=== PATIENT | male | born 1980 | race African-American/Black ===

== ENCOUNTER 2016-07-29 20:55 | Emergency (ER) | payer SELFPAY ==
[~2016-07-29] VITALS: Ht 165.1 cm; Wt 100.0 kg
[~2016-07-29 20:55] MED LIST: BACT PO; LORTA5 PO
[2016-07-29 20:58] VITALS: BP 128/68; PULSE 100; RESP 16; TEMP 98.9; O2SAT 97
[2016-07-29] MEDS ORDERED: SODIUM CHLOR 0.9% 1000 ML INJ 1,000 ML IV SCH (21:40)
[2016-07-29] MEDS ORDERED: KETOROLAC TROMETHAMINE 30 MG/ML (IVP) VIAL IVP ONE (21:45)
[2016-07-29 22:03] VITALS: BP 130/79; PULSE 95; RESP 30; O2SAT 98
--- NOTE | 2016-07-29 22:07 | RADRPT ---
EXAM DATE/TIME: 07/29/2016 21:58 [facility] COMPARISON: No previous studies available for comparison. INDICATIONS : Fever. MEDICAL HISTORY : Asthma. HIV. SURGICAL HISTORY : None. ENCOUNTER: Initial ACUITY: 1 day PAIN SCORE: 0/10 LOCATION: Bilateral chest FINDINGS: Portable AP view of the chest demonstrates a normal-sized cardiac silhouette. No effusion, consolidat ion, or pneumothorax is visualized. The bones and soft tissues demonstrate no acute abnormality. Mult iple EKG lines overlie the patient. CONCLUSION: No acute cardiopulmonary abnormality is identified. Raman Schmidt MD on July 29, 2016 at 22:04 Board Certified Radiologist. This report was verified electronically.
[2016-07-29 22:19] LABS: AUTOMATED NEUTROPHIL # 4.4 TH/MM3 (1.8-7.7); BASOPHIL % 0.3 % (0.0-2.0); EOSINOPHIL # 0.1 TH/MM3 (0-0.4); EOSINOPHIL % 1.4 % (0.0-4.0); HEMATOCRIT 36.9 % (39.0-51.0); HEMO FLAGS DIFF FINAL; LYMPH % 10.7 % (9.0-44.0); LYMPHOCYTE # 0.6 TH/MM3 (1.0-4.8); MEAN CORPUSCULAR HEMOGLOBIN 27.2 PG (27.0-34.0); MEAN CORPUSCULAR HGB CONC 33.2 % (32.0-36.0); MONO % 6.6 % (0.0-8.0); PLATELET COUNT 357 TH/MM3 (150-450); RED CELL DISTRIBUTION WIDTH 16.2 % (11.6-17.2); WHITE BLOOD COUNT 5.4 TH/MM3 (4.0-11.0)
--- NOTE | 2016-07-29 22:35 | PD ---
HPI Chief Complaint: Chest Pain Time Seen by Provider: 22:30 Travel History International Travel<30 days: No Contact w/Intl Traveler<30days: No Traveled to known affect area: No History of Present Illness HPI 36-year-old male with a history of HIV to presents to the ED for evaluation of weakness, cough and congestion as well as generalized pain for the past 2 weeks. Per patient history of developing left-sided chest pain today which made him concerned and is what he seek treatment today. Per patient his been noncompliant for about 6 months and he has not taken any of his HIV medications. Unclear as to why. Patient states that he feels like he has fevers and sweats. He has a history of MRSA in the past. Per patient he has not seen his doctor in an unknown amount of time. He does not know his CD4 count. He takes no medications. He denies any IV drugs. He states that most of his pain is on the left chest. He denies any abdominal pain but states that his bowel movements have been greenish. She denies any blood. States that he has a cough and congestion as well as sores in his mouth. He also states that he has pain in his wrist secondary to her recent fall. Pain per patient is 6 out of 10. Most of it throughout as body aches. PFSH Past Medical History Asthma: Yes Autoimmune Disease: Yes (HIV) Diminished Hearing: No Immune Disorder: Yes (HIV) Respiratory: Yes (BRONCHITIS) Immunizations Current: Yes Tetanus Vaccination: Unknown Influenza Vaccination: Yes Past Surgical History Surgical History: No Previous Surgery Social History Alcohol Use: No Tobacco Use: Yes Substance Use: No Allergies-Medications (Allergen,Severity, Reaction): Coded Allergies: *MDRO Multi-Drug Resistant Organism (Unverified Adverse Reaction, Unknown , 07/29/16) MRSA abscess buttocks 05/02/14. Reported Meds & Prescriptions Reported Meds & Active Scripts Active No Active Prescriptions or Reported Medications Review of Systems Except as stated in HPI: all other systems reviewed are Neg Physical Exam Narrative GENERAL: SKIN: Warm and dry. HEAD: Atraumatic. Normocephalic. EYES: Pupils equal and round. No scleral icterus. No injection or drainage. ENT: No nasal bleeding or discharge. Mucous membranes pink and moist. Tongue is midline. No uvula deviation. Patient does have what appears to be white patches on them out more noted on the throat and the tongue that are removable. NECK: Trachea midline. No JVD. CARDIOVASCULAR: Regular rate and rhythm. No murmurs, S3, S4. RESPIRATORY: No accessory muscle use. Clear to auscultation. Breath sounds equal bilaterally. GASTROINTESTINAL: Abdomen soft, non-tender, nondistended. Hepatic and splenic margins not palpable. MUSCULOSKELETAL: Extremities without clubbing, cyanosis, or edema. No obvious deformities. Full range of motion of the upper and lower extremities bilaterally. Patient does have some swelling on the wrist bilaterally. No obvious deformity noted however. Pupils pulses bilaterally. Full range of motion of all fingers as well as the hands. No lumbar, thoracic, cervical spine tenderness to palpation. NEUROLOGICAL: Awake and alert. No obvious cranial nerve deficits. Motor grossly within normal limits. Five out of 5 muscle strength in the arms and legs. Normal speech. PSYCHIATRIC: Appropriate mood and affect; insight and judgment normal. Data Data Last Documented VS Vital Signs Date Time Temp Pulse Resp B/P Pulse Ox O2 Delivery O2 Flow Rate FiO2 07/29/16 22:03 95 30 130/79 98 Room Air 07/29/16 20:58 98.9 Orders Electrocardiogram (07/29/16 ) Electrocardiogram (07/29/16 21:40) Complete Blood Count With Diff (07/29/16 21:40) Comprehensive Metabolic Panel (07/29/16 21:40) Creatine Kinase (Cpk) (07/29/16 21:40) Blood Culture (07/29/16 21:40) Lipase (07/29/16 21:40) Urinalysis - C+S If Indicated (07/29/16 21:40) Magnesium (Mg) (07/29/16 21:40) Thyroid Stimulating Hormone (07/29/16 21:40) Chest, Single Ap (07/29/16 21:40) Iv Access Insert/Monitor (07/29/16 21:40) Ecg Monitoring (07/29/16 21:40) Oximetry (07/29/16 21:40) Sodium Chlor 0.9% 1000 Ml Inj (Ns 1000 M (07/29/16 21:40) Ketorolac Inj (Toradol Inj) (07/29/16 21:45) Troponin I (07/29/16 21:41) Influenzae A/B Antigen (07/29/16 21:42) Wrist, Limited (Ap&Lat) (07/29/16 ) Wrist, Limited (Ap&Lat) (07/29/16 ) Labs Laboratory Tests Test 07/29/16 21:50 White Blood Count 5.4 TH/MM3 Red Blood Count 4.50 MIL/MM3 Hemoglobin 12.2 GM/DL Hematocrit 36.9 % Mean Corpuscular Volume 82.0 FL Mean Corpuscular Hemoglobin 27.2 PG Mean Corpuscular Hemoglobin 33.2 % Concent Red Cell Distribution Width 16.2 % Platelet Count 357 TH/MM3 Mean Platelet Volume 7.4 FL Neutrophils (%) (Auto) 81.0 % Lymphocytes (%) (Auto) 10.7 % Monocytes (%) (Auto) 6.6 % Eosinophils (%) (Auto) 1.4 % Basophils (%) (Auto) 0.3 % Neutrophils # (Auto) 4.4 TH/MM3 Lymphocytes # (Auto) 0.6 TH/MM3 Monocytes # (Auto) 0.4 TH/MM3 Eosinophils # (Auto) 0.1 TH/MM3 Basophils # (Auto) 0.0 TH/MM3 CBC Comment DIFF FINAL Differential Comment Sodium Level 142 MEQ/L Potassium Level 3.1 MEQ/L Chloride Level 102 MEQ/L Carbon Dioxide Level 30.7 MEQ/L Anion Gap 9 MEQ/L Blood Urea Nitrogen 9 MG/DL Creatinine 0.95 MG/DL Estimat Glomerular Filtration 108 ML/MIN Rate Random Glucose 76 MG/DL Calcium Level 9.0 MG/DL Magnesium Level 2.1 MG/DL Aspartate Amino Transf 23 U/L (AST/SGOT) Alanine Aminotransferase 22 U/L (ALT/SGPT) Albumin 3.3 GM/DL Lipase 170 U/L [facility] Medical Decision Making Medical Screen Exam Complete: Yes Emergency Medical Condition: Yes Medical Record Reviewed: Yes Interpretation(s) CBC Diagram 07/29/16 21:50 Differential Diagnosis Chest pain versus ACS versus a typical chest pain versus pneumonia versus bronchitis versus viral illness versus Trausch versus candidiasis Narrative Course 36-year-old male that presents to the ED for evaluation of different complaints. Patient was properly examined and was found to have signs and symptoms which appear to be consistent with likely infection. Patient is an HIV patient in noncompliance. Concern for bacterial infection as well as viral infection present. Patient does appear to have oral candidiasis. Labs and imaging ordered. Case signed out to my attending pending results and dispo. Scripts No Active Prescriptions or Reported Meds Robb Echeverria Jul 29, 2016 22:35
[2016-07-29 22:45] VITALS: RESP 16
[2016-07-29 22:45] LABS: ALT (GPT) 22 U/L (12-78); ANION GAP 9 MEQ/L (5-15); AST (GOT) 23 U/L (15-37); BICARBONATE 30.7 MEQ/L (21.0-32.0); BLOOD UREA NITROGEN 9 MG/DL (7-18); CHLORIDE 102 MEQ/L (98-107); GLOMERULAR FILTRATION RATE 108 ML/MIN (>89); MAGNESIUM 2.1 MG/DL (1.5-2.5); POTASSIUM 3.1 MEQ/L (3.5-5.1); SODIUM (NA) 142 MEQ/L (136-145)
--- NOTE | 2016-07-29 22:52 | RADRPT ---
EXAM DATE/TIME: 07/29/2016 22:39 [facility] COMPARISON: No previous studies available for comparison. INDICATIONS : Fall. Wrist pain. MEDICAL HISTORY : Asthma. HIV. SURGICAL HISTORY : None. ENCOUNTER: Initial ACUITY: 2 days PAIN SCORE: 5/10 LOCATION: Bilateral wrists FINDINGS: Two view examination of the right wrist demonstrates no soft tissue swelling, dislocation, or fractur e. The joint spaces are maintained. Bony mineralization is normal. CONCLUSION: Intact right wrist. Raman Bermudez MD on July 29, 2016 at 22:50 Board Certified Radiologist. This report was verified electronically.
--- NOTE | 2016-07-29 22:53 | RADRPT ---
EXAM DATE/TIME: 07/29/2016 22:39 [facility] COMPARISON: No previous studies available for comparison. INDICATIONS : Fall. Wrist pain. MEDICAL HISTORY : Asthma. HIV. SURGICAL HISTORY : None. ENCOUNTER: Initial ACUITY: 2 days PAIN SCORE: 5/10 LOCATION: Bilateral wrists FINDINGS: Two view examination of the left wrist demonstrates no soft tissue swelling, dislocation, or fracture . The joint spaces are maintained. Bony mineralization is normal. CONCLUSION: Intact left wrist. Raman Bermudez MD on July 29, 2016 at 22:51 Board Certified Radiologist. This report was verified electronically.
--- NOTE | 2016-07-29 22:53 | PD ---
Data Data Last Documented VS Vital Signs Date Time Temp Pulse Resp B/P Pulse Ox O2 Delivery O2 Flow Rate FiO2 07/29/16 22:45 16 07/29/16 22:03 95 130/79 98 Room Air 07/29/16 20:58 98.9 Orders Electrocardiogram (07/29/16 ) Electrocardiogram (07/29/16 21:40) Complete Blood Count With Diff (07/29/16 21:40) Comprehensive Metabolic Panel (07/29/16 21:40) Creatine Kinase (Cpk) (07/29/16 21:40) Blood Culture (07/29/16 21:40) Lipase (07/29/16 21:40) Urinalysis - C+S If Indicated (07/29/16 21:40) Magnesium (Mg) (07/29/16 21:40) Thyroid Stimulating Hormone (07/29/16 21:40) Chest, Single Ap (07/29/16 21:40) Iv Access Insert/Monitor (07/29/16 21:40) Ecg Monitoring (07/29/16 21:40) Oximetry (07/29/16 21:40) Sodium Chlor 0.9% 1000 Ml Inj (Ns 1000 M (07/29/16 21:40) Ketorolac Inj (Toradol Inj) (07/29/16 21:45) Troponin I (07/29/16 21:41) Influenzae A/B Antigen (07/29/16 21:42) Wrist, Limited (Ap&Lat) (07/29/16 ) Wrist, Limited (Ap&Lat) (07/29/16 ) Potassium Chloride (Kcl) (07/29/16 23:00) Ceftriaxone Inj (Rocephin Inj) (07/30/16 00:00) Azithromycin Inj (Zithromax Inj) (07/30/16 00:00) Sodium Chlorid 0.9% 500 Ml Inj (Ns 500 M (07/30/16 00:00) Sodium Chloride 0.9% Flush (Ns Flush) (07/30/16 00:45) Methylprednisolone So Succ Inj (Solumedr (07/30/16 00:45) Albuterol-Ipratropium Neb (Duoneb Neb) (07/30/16 00:45) Albuterol Hfa Inh (Proair Hfa Inh) (07/30/16 00:45) Labs Laboratory Tests Test 07/29/16 07/30/16 21:50 00:15 White Blood Count 5.4 TH/MM3 Red Blood Count 4.50 MIL/MM3 Hemoglobin 12.2 GM/DL Hematocrit 36.9 % Mean Corpuscular Volume 82.0 FL Mean Corpuscular Hemoglobin 27.2 PG Mean Corpuscular Hemoglobin 33.2 % Concent Red Cell Distribution Width 16.2 % Platelet Count 357 TH/MM3 Mean Platelet Volume 7.4 FL Neutrophils (%) (Auto) 81.0 % Lymphocytes (%) (Auto) 10.7 % Monocytes (%) (Auto) 6.6 % Eosinophils (%) (Auto) 1.4 % Basophils (%) (Auto) 0.3 % Neutrophils # (Auto) 4.4 TH/MM3 Lymphocytes # (Auto) 0.6 TH/MM3 Monocytes # (Auto) 0.4 TH/MM3 Eosinophils # (Auto) 0.1 TH/MM3 Basophils # (Auto) 0.0 TH/MM3 CBC Comment DIFF FINAL Differential Comment Sodium Level 142 MEQ/L Potassium Level 3.1 MEQ/L Chloride Level 102 MEQ/L Carbon Dioxide Level 30.7 MEQ/L Anion Gap 9 MEQ/L Blood Urea Nitrogen 9 MG/DL Creatinine 0.95 MG/DL Estimat Glomerular Filtration 108 ML/MIN Rate Random Glucose 76 MG/DL Calcium Level 9.0 MG/DL Magnesium Level 2.1 MG/DL Total Bilirubin 0.4 MG/DL Aspartate Amino Transf 23 U/L (AST/SGOT) Alanine Aminotransferase 22 U/L (ALT/SGPT) Alkaline Phosphatase 49 U/L Total Creatine Kinase 161 U/L Total Protein 7.8 GM/DL Albumin 3.3 GM/DL Lipase 170 U/L Thyroid Stimulating Hormone 1.130 uIU/ML 3rd Gen Troponin I LESS THAN 0.02 NG/ML Urine Color DARK-YELLOW Urine Turbidity CLEAR Urine pH 6.5 Urine Specific [place] 1.034 Urine Protein 100 mg/dL Urine Glucose (UA) NEG mg/dL Urine Ketones TRACE mg/dL Urine Occult Blood NEG Urine Nitrite NEG Urine Bilirubin NEG Urine Urobilinogen 4.0 MG/DL Urine Leukocyte Esterase NEG Urine RBC 1 /hpf Urine WBC 3 /hpf Urine Squamous Epithelial 3 /hpf Cells Urine Mucus MANY /lpf Microscopic Urinalysis Comment CULT NOT INDICATED [facility] Medical Record Reviewed: Yes Supervised Visit with NICA: No Interpretation(s) Last Impressions Chest X-Ray 07/29/160 Signed Impressions: Service Date/Time: Friday, July 29, 2016 21:58 - CONCLUSION: No acute cardiopulmonary abnormality is identified. Raman Schmidt MD Wrist X-Ray 07/29/16 0000 Signed Impressions: Service Date/Time: Friday, July 29, 2016 22:39 - CONCLUSION: Intact left wrist. Raman Bermudez MD Wrist X-Ray 07/29/16 0000 Signed Impressions: Service Date/Time: Friday, July 29, 2016 22:39 - CONCLUSION: Intact right wrist. Raman Bermudez MD Narrative Course During the course of the patients emergency department visit, the patients history, examination, and differential diagnosis were reviewed with the patient. The patient had IV access obtained and blood work sent for analysis. The patient was placed on a sales agent food vending service with oximetry and blood pressure monitoring. The patient was initially evaluated by Francesco. Please see his complete history and physical. The patient's case was checked out to me at the conclusion of his shift. The patient is a 36-year-old male who presents to [facility] emergency Department with a history of chills, generalized weakness, cough and a history of HIV off of bridge or viral medications. The patient was initially provided normal saline 1 L IV fluid bolus, Toradol for pain. The patients laboratory studies were reviewed and remarkable for a CMP that is remarkable for a potassium of 3.1 which was supplemented orally with potassium chloride 40 mEq by mouth 1. Urinalysis is unremarkable. Radiology studies were reviewed and remarkable for a chest x-ray that shows no acute abnormality. The patient was reexamined. The patient reports having a rescue inhaler that he uses at home. The patient reports that he has not used this recently. The patient reports feeling tight. The patient was given duo nebs 2, Solu-Medrol 125 mg IV. The patient will be discharged home with a Medrol Dosepak taper, Ceftin, Zithromax. The patient reports that he was previously followed by the [facility] Department through which he was receiving his retroviral medications. He is encouraged to follow up to get started back on his HIV medications. The patient is encouraged to follow up in the next 2 days for reexamination. The patient is resting comfortably and feels better, is alert and in no distress. The patients results and examination findings were discussed with the patient. The repeat examination is unremarkable and benign. The history, exam, diagnostic testing, and current condition do not suggest any significant pathology to warrant further testing, continued ED treatment, admission, or surgical evaluation at this point. The vital signs have been stable. The patient does not have uncontrollable pain, intractable vomiting, or other significant symptoms. The patient's condition is stable and appropriate for discharge. The patient will pursue further outpatient evaluation with a primary care physician or other designated or consulting physician as indicated in the discharge instructions. The patient expressed understanding and was agreeable with this plan. Diagnosis Primary Impression: Bronchitis Additional Impression: Asthma Qualified Code: J45.901 - Asthma with acute exacerbation, unspecified asthma severity [facility]: [facility] Patient Instructions: Acute Bronchitis (ED), Asthma (ED), General Instructions Med/Other Pt SpecificInfo: Prescription(s) given Scripts Methylprednisolone Dosepak (Medrol Dosepak)4 Mg Dspk4 Mg PO DIRECTED #1 DSPK Ref 0 Per Pharmacist direction Prov:Yas Granados MD 07/30/16 Azithromycin (Zithromax)250 Mg [id number] Mg PO DAILY #4 TAB Ref 0 Prov:Yas Granados MD 07/30/16 Cefuroxime 500 Mg [id number] Mg PO BID 14 Days Ref 0 Prov:Yas Granados MD 07/30/16 Disposition: 01 DISCHARGE HOME Condition: Stable Yas Granados MD Jul 29, 2016 22:53
[2016-07-29] MEDS ORDERED: POTASSIUM CHLORIDE 20 MEQ CONTROLLED RELEASE TAB PO ONE (23:00)
[2016-07-29 23:12] LABS: ALKALINE PHOSPHATASE 49 U/L (45-117); CREATINE KINASE 161 U/L (39-308); TOTAL BILIRUBIN ADULT 0.4 MG/DL (0.2-1.0)
[2016-07-30] MEDS ORDERED: ZITH250T PO
[2016-07-30] MEDS ORDERED: SODIUM CHLORID 0.9% 500 ML INJ 500 ML IV ONE
[2016-07-30] MEDS ORDERED: CEFU1TAB20 PO
[2016-07-30] MEDS ORDERED: cefTRIAXone INJ 1,000 MG in SODIUM CHLORIDE 0.9% INJ 100 ML IV ONE ×2
[2016-07-30] MEDS ORDERED: AZITHROMYCIN INJ 500 MG in SODIUM CHLOR 0.9% 250 ML INJ 250 ML IV ONE ×2
[2016-07-30] MEDS ORDERED: MEDR4PAK PO (00:37)
[2016-07-30] MEDS ORDERED: SODIUM CHLORIDE 0.9% FLUSH 10 ML FLUSH IVF PRN (00:45)
[2016-07-30] MEDS ORDERED: ALBUTEROL SULFATE 90 MCG/ACT HFA 8 GM INHALER INH ONE (00:45)
[2016-07-30] MEDS ORDERED: methylPREDNISolone SOD SUCC 125 MG/2 ML VIAL IVP ONE (00:45)
[2016-07-30 00:51] LABS: BLOOD, URINE NEG (NEG); COMMENT (UR) CULT NOT INDICATED; CULTURE IF INDICATED CULT NOT INDICATED; GLUCOSE,URINE NEG (NEG); KETONE, URINE TRACE mg/dL (NEG); MUCUS URINE MANY /lpf (OCC); NITRITE,URINE NEG (NEG); PH, URINE 6.5 (5.0-8.5); SQUAMOUS EPITHELIAL CELL URINE 3 /hpf (0-5); URINE COLOR DARK-YELLOW (YELLW/STRAW)
[2016-07-30] MEDS: RESP: ALBUTEROL 2.5 MG/IPRATROPIUM 0.5 MG NEB (SCH) INH (00:55)
--- NOTE | 2016-07-30 17:09 | EKG ---
Date Performed: 07/29/2016 Time Performed: 21:11:34 PTAGE: 36 years EKG: Sinus rhythm NONSPECIFIC T-WAVE ABNORMALITY BORDERLINE ECG NO PREVIOUS TRACING DOCTOR: Shahida Andrews Interpretating Date/Time 07/30/2016 17:06:35
== END 2016-07-30 01:55 | disposition home or self-care (01) ==
LOC: NEPC 20:55
DX: J40 Bronchitis, not specified as acute or chronic (principal); J45.909 Unspecified asthma, uncomplicated; R53.1 Weakness; M25.531 Pain in right wrist; M25.532 Pain in left wrist; Z21 Asymptomatic human immunodeficiency virus [HIV] infection status; Z86.14 Personal history of Methicillin resistant Staphylococcus aureus infection; Z72.0 Tobacco use; W19.XXXA Unspecified fall, initial encounter; Y93.9 Activity, unspecified; Y92.9 Unspecified place or not applicable; Y99.8 Other external cause status
CPT/HCPCS: 71010; 73100; 80053; 81001; 82550; 83690; 83735; 84443; 84484; 85025; 87040; 87804; 93005; 94640; 94664; 96361; 96374; 96375; 99285; J0456; J0696; J1885; J2930; J7030; J7040; J7050